=== PATIENT | male | born 1980 | race Caucasian/White ===

== ENCOUNTER 2019-07-20 17:31 | Emergency (ER) | payer OTHER ==
--- NOTE | 2019-07-20 17:49 | EDM.PDOC ---
ED HPI GENERAL MEDICAL PROBLEM - General Chief Complaint: Back Pain or Injury Stated Complaint: LOW BACK PAIN Time Seen by Provider: 07/20/19 17:44 - History of Present Illness INITIAL COMMENTS - FREE TEXT/NARRATIVE: 39-year-old male presents the emergency room with low back pain. This pain is worse on the left side. He has pain that extends around his buttocks into his mid thigh on the posterior portion of his thigh. This started about Tuesday evening. The patient denies any unusually heavy lifting or any specific trauma however after this started the patient did drive from [facility] to here. The patient has had no loss of bowel or bladder control the patient does not have pain that extends below his knees bilaterally. Patient has not had problems with his back in the past Left Back Pain Score (Numeric/FACES): 8 - Related Data Allergies Allergy/AdvReac Type Severity Reaction Status Date / Time amoxicillin Allergy Cannot Verified 07/20/19 17:43 Remember Home Meds: Home Meds Cyclobenzaprine [Flexeril] 10 mg PO BEDTIME #7 tab 07/20/19 [Rx] ED ROS GENERAL - Review of Systems Review Of Systems: See Below Constitutional: Reports: No Symptoms Respiratory: Reports: No Symptoms Cardiovascular: Reports: No Symptoms GI/Abdominal: Reports: No Symptoms, Other (He has been advised not to use ibuprofen on a regular basis because of stomach problems) ED EXAM,LOWER BACK PAIN/INJURY - Physical Exam Exam: See Below Exam Limited By: No Limitations General Appearance: Alert, No Apparent Distress Respiratory/Chest: No Respiratory Distress, Lungs Clear, Normal Breath Sounds Cardiovascular: Regular Rate, Rhythm, No Edema, No Murmur GI/Abdominal: Normal Bowel Sounds, Soft, Non-Tender Back Exam: Muscle Spasm, Other (He has significant tightness and discomfort in the paraspinous muscles much worse on the left compared to the right). No: CVA Tenderness (L), CVA Tenderness (R), Vertebral Tenderness Extremities: Other (Straight leg raises for the most part unremarkable on the right he gets localized back pain and buttocks pain on the left at about 60 degrees) Neurological: Alert, Normal Mood/Affect Course - Vital Signs Last Recorded V/S: Last Vital Signs Temp 36.4 C 07/20/19 17:41 Pulse 114 H 07/20/19 17:41 Resp 16 07/20/19 17:41 BP 150/88 H 07/20/19 17:41 Pulse Ox 96 07/20/19 17:41 - Orders/Labs/Meds Meds: Medications Discontinued Medications Generic Name Dose Route Start Last Admin Trade Name Ian PRN Reason Stop Dose Admin Ketorolac Tromethamine 30 mg 07/20/19 18:17 Toradol IM 07/20/19 18:18 ONETIME ONE - Re-Assessments/Exams Free Text/Narrative Re-Assessment/Exam: 07/20/19 18:25 Give the patient a single shot of Toradol 30 mg IM start him on Flexeril 1 during the evenings and have him use Tylenol for discomfort. Departure - Departure Time of Disposition: 18:26 Disposition: Home, Self-Care 01 Clinical Impression: Low back strain - Discharge Information Referrals: PCP,None [Primary Care Provider] - Forms: ED Department Discharge Additional Instructions: Return to the emergency room with any questions problems or worsening symptoms. If needed follow-up in the hospital clinic in 1 week for recheck [phone]. Use Tylenol 2 of the regular strength or 650 mg every 4 hours while awake or Tylenol Extra Strength 500 mg take 2 every 6 hours. Your prescription for Flexeril, the muscle relaxant should be taken as soon as you get home from work. Allow 12 hours after using this medication before driving or returning to work. Sepsis Event Note - Evaluation Sepsis Screening Result: No Definite Risk - Focused Exam Vital Signs: Vital Signs Temp Pulse Resp BP Pulse Ox 07/20/19 17:41 36.4 C 114 H 16 150/88 H 96 Date Exam was Performed: 07/20/19 Time Exam was Performed: 18:18
[2019-07-20] MEDS ORDERED: Ketorolac 30 MG/ML SDV IM ONE (18:17)
== END 2019-07-20 19:23 | disposition home or self-care (01) ==
LOC: JD.ED 17:31
DX: S39.012A Strain of muscle, fascia and tendon of lower back, initial encounter (principal); Z88.1 Allergy status to other antibiotic agents; X50.0XXA Overexertion from strenuous movement or load, initial encounter; Y99.0 Civilian activity done for income or pay
CPT/HCPCS: 96372; 99283; J1885